=== PATIENT | female | born 1965 | race Caucasian/White ===

== ENCOUNTER → 2017-06-08 | Outpatient (CLI) | payer MEDICAID ==
--- NOTE | 2017-06-08 14:25 | RAD ---
Cervical spine, five views History: Pain in thoracic spine Findings: Normal appearance of vertebrae, disc spaces and prevertebral soft tissues. Neural foramina are open. The odontoid is midline and intact. Impression: No acute or significant cervical spine abnormality demonstrated. Reported By:
--- NOTE | 2017-06-08 14:27 | RAD ---
Examination: Thoracic spine, AP and lateral views History: Thoracic spine pain Findings: Normal appearance of thoracic vertebrae, disc spaces and paraspinal soft tissues. There are degenerative osteophyts present at multiple levels. No pedicle destruction or fracture. Impression: No acute abnormality. Degenerative thoracic spondylosis. Reported By:
--- NOTE | 2017-06-08 14:41 | RAD ---
Examination: Lumbar spine, five views History: Pain Findings: No evidence for acute fracture, osteolytic disease or subluxation. There is slight disc alexandra rowing at L4-5-S1. Small marginal osteophytes are noted at other levels. Pedicles and sacroiliac join ts are intact. Impression: No acute process. Mild degenerative changes at lower disc spaces. Negative otherwise. Reported By:
[2017-06-08 16:33] LABS: BASOPHILS # (AUTO) 0.1 X10^3/uL (0.0-0.1); BASOPHILS % (AUTO) 0.9 % (0.2-1.0); EOSINOPHILS # (AUTO) 0.4 x10^3/uL (0.0-0.2); EOSINOPHILS % (AUTO) 3.7 % (0.9-2.9); HEMATOCRIT 37.8 % (36.0-47.0); HEMOGLOBIN 12.7 g/dL (12.0-16.0); HEMOGLOBIN A1C 5.4 % (4.5-6.2); LYMPHOCYTES # (AUTO) 2.7 X10^3/uL (1.3-2.9); LYMPHOCYTES % (AUTO) 25.1 % (21.0-51.0); MEAN CORPUSCULAR HEMOGLOBIN 26.1 pg (27.0-34.0); MEAN CORPUSCULAR HGB CONC 33.6 g/dL (33.0-35.0); MEAN CORPUSCULAR VOLUME 77.6 fL (80.0-100.0); MEAN PLATELET VOLUME 11.3 fL (7.4-11.0); MONOCYTES # (AUTO) 0.7 x10^3/uL (0.3-0.8); MONOCYTES % (AUTO) 6.6 % (0.0-13.0); NEUTROPHILS % (AUTO) 63.7 % (42.0-75.0); PLATELET COUNT 272 X10^3/uL (150.0-450.0); RED BLOOD COUNT 4.87 X10^6/uL (3.5-5.4); RED CELL DISTRIBUTION WIDTH 18.4 % (11.6-16.5); WHITE BLOOD COUNT 10.9 X10^3/uL (3.6-10.0)
[2017-06-08 16:35] LABS: ALANINE AMINOTRANSFERASE 14 Units/L (12-78); ALBUMIN 3.6 g/dL (3.4-5.0); ALKALINE PHOSPHATASE 79 Units/L (46-116); ASPARTATE AMINO TRANSFERASE 10 Units/L (15-37); BLOOD UREA NITROGEN 18 mg/dL (7-18); CALCIUM 9.4 mg/dL (8.5-10.1); CARBON DIOXIDE 30.8 mmol/L (21-32); CHLORIDE 102 mmol/L (98-107); CHOL/HDL RATIO 5.1 (0.0-5.0); CHOLESTEROL 272 mg/dL (0-200); CREATININE 0.84 mg/dL (0.55-1.02); HDL CHOLESTEROL 53 mg/dL (40-60); SODIUM 139 mmol/L (136-145); TOTAL PROTEIN 7.5 g/dL (6.4-8.2); TRIGLYCERIDES 226 mg/dL (0-150); eGFR BLACK RACES > 60 (>60); eGFR NON BLACK RACES > 60 (>60)
[2017-06-08 17:09] LABS: ERYTHROCYTE SEDIMENTATION RATE 55 MM/HOUR (0-20)
== END ==
LOC: LAB 11:47
PROVIDERS: ATTEND Nurse Practitioner Family
DX: E78.4 Other hyperlipidemia (principal); M54.5 Low back pain; M54.6 Pain in thoracic spine; Z83.3 Family history of diabetes mellitus; R20.0 Anesthesia of skin
CPT/HCPCS: 36415; 72050; 72072; 72110; 80053; 80061; 83036; 85025; 85652; 86140

== ENCOUNTER → 2017-06-16 | Outpatient (CLI) | payer MEDICAID ==
[2017-06-16 10:32] LABS: IRON 24 ug/dL (50-175); TOTAL IRON BINDING CAPACITY 355 ug/dL (250-450)
--- NOTE | 2017-06-16 11:50 | RAD ---
History: Abdominal pain Study: Acute abdominal series Comparison: None Findings: The lungs are clear and the heart size is prominent. There is no edema or effusion. The bowel gas pattern is unremarkable. There is a prominent amount of fecal material in the ascending and transverse and left colon. There are phleboliths in the pelvis. There are mild degenerative oste ophytes in the lumbar spine. Impression: 1. No evidence for active cardiopulmonary disease 2. Prominent fecal material in the colon, otherwise unremarkable abdomen. Reported By:
[2017-06-20 14:35] LABS: METHYLMALONIC ACID 0.3 umol/L (0.00-0.40)
== END ==
LOC: LAB 09:21
PROVIDERS: ATTEND Nurse Practitioner Family
DX: R53.83 Other fatigue (principal); R10.84 Generalized abdominal pain; E55.9 Vitamin D deficiency, unspecified; Z86.2 Personal history of diseases of the blood and blood-forming organs and certain disorders involving the immune mechanism
CPT/HCPCS: 36415; 74022; 82306; 82607; 82728; 83540; 83550; 83918

== ENCOUNTER → 2017-06-30 | Outpatient (CLI) | payer MEDICAID ==
--- NOTE | 2017-06-30 09:53 | MRI ---
MRI lumbar spine without contrast Indication: Lower back pain Technique: Multisequence, multiplanar MR images of the lumbar spine were obtained without IV contrast . Comparison: Radiograph 06/08/2017 Findings: Vertebral body heights, alignment and marrow signal are normal. No acute fracture, subluxat ion or suspicious osseous lesion is identified. The conus terminates normally at T12-L1. The cauda eq uina is unremarkable. Small bilateral ovarian cysts are noted. The remaining unenhanced paraspinal so ft tissues demonstrates no gross unexpected findings. T12-L1, L1-L2, L2-L3: Moderate facet arthropathy without significant canal or foraminal stenosis. L3-L4: Mild disc desiccation, mild broad-based disc bulge and moderate facet arthropathy results in m ild canal and mild left greater than right foraminal stenosis L4-L5: There is mild disc desiccation, mild broad-based disc bulge and moderate facet arthropathy wit h mild resultant canal narrowing and mild right and moderate left foraminal stenosis. L5-S1: There is mild disc desiccation/narrowing, mild broad-based disc bulge and moderate facet arthr opathy. There is severe left and mild right neural foraminal stenosis. There is no significant canal narrowing. Impression: Multilevel discogenic degenerative changes and facet arthropathy of the lumbar spine, resulting in va rying degrees of canal and foraminal stenosis, most significant at L4-L5 and L5-S1 as above. Reported By:
== END | disposition home or self-care (01) | DRG 552 ==
LOC: RAD 07:59
PROVIDERS: ATTEND Nurse Practitioner Family
DX: M54.6 Pain in thoracic spine (principal); R20.0 Anesthesia of skin; M54.5 Low back pain; M48.07 Spinal stenosis, lumbosacral region
CPT/HCPCS: 72148

== ENCOUNTER → 2017-07-04 | Outpatient (CLI) | payer MEDICAID | LOC: RT 10:11 | PROVIDERS: ATTEND Psychiatry & Neurology Neurology | DX: M54.6 Pain in thoracic spine (principal); R20.0 Anesthesia of skin; M54.5 Low back pain | CPT/HCPCS: 95909 ==